=== PATIENT | female | born 1940 | race Caucasian/White ===

== ENCOUNTER 2016-07-16 14:38 | Emergency (ER) | payer MEDICARE, OTHER ==
--- NOTE | 2016-07-16 15:57 | RAD ---
RIGHT HAND 3 VIEWS HISTORY: Status post fall with pain at the third through fifth metacarpals. COMPARISONS: None. TECHNIQUE: Frontal, lateral, and oblique views of the right hand. BONE DENSITY: Diffuse osteopenia. DEGENERATIVE CHANGE: Moderate degeneration of interphalangeal joints, radial aspects of the carpus, and metacarpophalangeal joints. Suggested erosive change at the fifth carpometacarpal joint. Alternatively, this could relate to a nondisplaced fracture at the lateral aspect of the hamate. ALIGNMENT: Grossly unremarkable. FRACTURE: No displaced acute fracture. SOFT TISSUES: Dorsal soft tissue swelling. RADIOOPAQUE FOREIGN BODY: None. IMPRESSION: 1. Prominent dorsal soft tissue swelling. 2. Moderate degenerative changes without malalignment or displaced acute fracture. 3. Contour irregularity at the fifth carpometacarpal joint which may reflect changes of inflammatory arthropathy or nondisplaced hamate fracture. 4. Diffuse osteopenia.
== END 2016-07-16 16:39 | disposition home or self-care (01) ==
LOC: ED 14:38
DX: S60.221A Contusion of right hand, initial encounter (principal); F03.90 Unspecified dementia, unspecified severity, without behavioral disturbance, psychotic disturbance, mood disturbance, and anxiety; W19.XXXA Unspecified fall, initial encounter